=== PATIENT | female | born 1990 | race American Indian/Alaskan Native ===

== ENCOUNTER 2017-12-30 09:12 | Emergency (ER) | payer MEDICAID ==
[2017-12-30 10:07] VITALS: BP 105/73
[2017-12-30] MEDS ORDERED: ZOFRAN ODT PO ONE (11:01)
--- NOTE | 2017-12-30 11:06 | Emergency Department Report ---
- General Chief Complaint: Upper Respiratory Infection Stated Complaint: NVD Time Seen by Provider: 12/30/17 11:01 Source: patient Mode of arrival: Ambulatory Limitations: No Limitations - History of Present Illness Initial Comments: 27-year-old -[place] female presents to the emergency room for flulike symptoms. This has been going on for 3 days. Patient complains of cough sore throat bilateral radial pain is a congestion and rhinorrhea nausea vomiting and back pain. Patient recently had a baby back in 10/13/2017 with a and tubal ligation. Patient was has a past medical history of this C-sections and her gallbladder removed. She has no known drug allergies and currently takes no medications. 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) Worsens With: nothing Context: sick contacts Associated Symptoms: rhinorrhea, nasal congestion, sore throat, cough, nausea, vomiting, diarrhea Treatments Prior to Arrival: Acetaminophen - Related Data Previous Rx's Medication Instructions Recorded Last Taken Type Ondansetron [Zofran Odt] 4 mg PO Q8HR #9 tab.rapdis 12/30/17 Unknown Rx Allergies Allergy/AdvReac Type Severity Reaction Status Date / Time No Known Allergies Allergy Verified 12/30/17 10:01 ED Review of Systems ROS: Stated complaint: NVD Other details as noted in HPI Constitutional: denies: chills, fever ENT: ear pain, throat pain, congestion Respiratory: cough Cardiovascular: denies: chest pain, palpitations Endocrine: no symptoms reported Musculoskeletal: back pain Skin: denies: rash, lesions Psychiatric: denies: anxiety, depression ED Past Medical Hx - Past Medical History Previous Medical History?: No - Surgical History Past Surgical History?: Yes Hx Cholecystectomy: Yes Additional Surgical History: c section - Social History Smoking Status: Never Smoker Substance Use Type: Alcohol - Medications Home Medications: Home Medications Medication Instructions Recorded Confirmed Last Taken Type Ondansetron [Zofran Odt] 4 mg PO Q8HR #9 tab.rapdis 12/30/17 Unknown Rx ED Physical Exam - General Limitations: No Limitations - Head Head exam: Present: atraumatic, normocephalic - Eye Eye exam: Present: normal appearance - ENT ENT exam: Present: mucous membranes moist - Neck Neck exam: Present: normal inspection - Cardiovascular Cardiovascular Exam: Present: regular rate, normal rhythm. Absent: systolic murmur, diastolic murmur, rubs, gallop - GI/Abdominal GI/Abdominal exam: Present: soft, normal bowel sounds - Extremities Exam Extremities exam: Present: normal inspection - Back Exam Back exam: Present: normal inspection - Psychiatric Psychiatric exam: Present: normal affect, normal mood - Skin Skin exam: Present: warm, dry, intact, normal color. Absent: rash ED Course Vital Signs 12/30/17 10:01 Temperature 98.5 F Pulse Rate 100 H Respiratory 16 Rate Blood Pressure 105/73 O2 Sat by Pulse 99 Oximetry - Reevaluation(s) Reevaluation #1: 12/30/17 11:35 Reevaluated patient after having Zofran she reports she is feeling the best she' s felt in a long time. Discussed the patient I will give her an ibuprofen to help with her head and discharge her home patient verbalized understanding and very appreciative. ED Medical Decision Making - Medical Decision Making She's been evaluated by this provider fast track. Give her Zofran 8 mg ODT. I' ll order ibuprofen for headache. She does not have a fever so chest x-ray is not necessary. 27-year-old female presents with viral syndrome. Fever resolved no fever during the ED stay. Did not perform rapid flu test a ED due to patient fever resolved and prior to ED arrival. Discussed with Pt symptomatic relief with [id number] medications. Discussed continue Motrin as needed for fever and pain. Discussed increase fluids and diet intake. Discussed rest much needed. Discussed daily vitamin C for immune booster. Discussed follow-up with PCP in 3-5 days. Patient verbally states she understands and will comply the following instructions and follow-up Vital signs stable. Patient is in no acute distress Critical care attestation.: If time is entered above; I have spent that time in minutes in the direct care of this critically ill patient, excluding procedure time. ED Disposition Clinical Impression: URI, acute Disposition: DC-01 TO HOME OR SELFCARE Is pt being admited?: No Does the pt Need Aspirin: No Condition: Stable Instructions: Viral Syndrome (ED) Additional Instructions: You can take [id number] Tylenol or Motrin for body pains. Prescriptions: Ondansetron [Zofran Odt] 4 mg PO Q8HR #9 tab.rapdis Referrals: PRIMARY CARE, [Primary Care Provider] - 3-5 Days Forms: Work/School Release Form(ED)
[2017-12-30] MEDS ORDERED: MOTRIN PO ONE (11:33)
[2017-12-30 11:41] LABS: Mucus,Urine 3+ /HPF
[2017-12-30 11:42] LABS: Bilirubin,Urine NEG (Negative); Blood,Urine MOD (Negative); Color,Urine Yellow (Yellow); Protein,Urine <15 mg/dL mg/dL (Negative); Urobilinogen,Urine < 2.0 mg/dL (<2.0)
== END 2017-12-30 12:25 | disposition home or self-care (01) ==
LOC: ED 09:12
DX: J06.9 Acute upper respiratory infection, unspecified (principal); R11.2 Nausea with vomiting, unspecified; R19.7 Diarrhea, unspecified; Z90.49 Acquired absence of other specified parts of digestive tract
CPT/HCPCS: 81001; 99283; Q0162